=== PATIENT | female | born 1980 | race Caucasian/White ===

== ENCOUNTER → 2018-04-09 | Outpatient (CLI) | payer OTHER ==
[~2018-04-09] MED LIST: CORTIZONE-1028 GM TP; DOCUSATE SODIU100 MG PO; ENDOCET 5-3251 EACH PO; MOTRIN800 MG PO; PERCOCET 5/31 TABLET PO; PRENATAL TABLE1 EAC3 PO; SINGULAIR10 MG PO
== END | disposition home or self-care (01) ==
LOC: RAD 14:44
DX: M79.675 Pain in left toe(s) (principal)
CPT/HCPCS: 73630